=== PATIENT | female | born 1935 | race Caucasian/White ===

== ENCOUNTER → 2016-06-21 | Outpatient (CLI) | payer MEDICARE, BC ==
[~2016-06-21] MED LIST: BACTRIM DS 8001 TAB PO; BYSTOLIC10 MG PO; CALCIUM500 MG PO; CYMBALTA 30MG30 MG PO; EXCELON PATCH; EXELON9.5 MG/24 TD; FLEXERIL5 MG PO; FLOVENT DI50 MCG/Act IH; HYDROCHLOROTHIA PO; INDERAL 20MG20 MG PO; LIDODERM PATCH TP; LORTAB 5/500 501 TAB PO; NATURAL MAGNES200 MG PO; NORCO 325 MG-51 TAB PO; NORCO 325 MG-7.1 TAB PO; OMEGA 31000 MG PO; OSCAL 500 TAB500 MG PO; OXYCODONE HCL5 MG PO; PRILOSEC 20MG20 MG PO; ROXICODONE 55 MG/TAB PO; SYNTHROID0.05 MG/TA PO; ULTRAM 50MG TAB50 MG PO; VITAMIN C500 MG PO; VITAMIN D 400400 IU PO; ZANTAC 150MG T150 MG PO; ZOCOR 20MG20 MG PO
== END ==
LOC: MC.RAD 10:20
DX: Z12.31 Encounter for screening mammogram for malignant neoplasm of breast (principal); D24.2 Benign neoplasm of left breast; D24.1 Benign neoplasm of right breast

== ENCOUNTER → 2017-06-24 | Outpatient (CLI) | payer MEDICARE, BC | LOC: MC.RAD 10:00 | DX: Z12.31 Encounter for screening mammogram for malignant neoplasm of breast (principal) ==

== ENCOUNTER → 2018-07-09 | Outpatient (CLI) | payer MEDICARE, BC | LOC: MC.RAD 09:58 | DX: Z12.31 Encounter for screening mammogram for malignant neoplasm of breast (principal) ==

== ENCOUNTER 2019-03-16 09:52 | Emergency (ER) | payer MEDICARE, BC ==
[2007-09-27 15:07] VITALS: BP 130/70
[~2019-03-16] VITALS: Ht 152.4 cm; Wt 55.5 kg
[2019-03-16 10:28] VITALS: BP 129/65; TEMP 98.3
[2019-03-16 14:25] VITALS: PULSE 84
== END 2019-03-16 14:25 | disposition home or self-care (01) ==
LOC: COL.ER 09:52
DX: M41.56 Other secondary scoliosis, lumbar region (principal); Z90.710 Acquired absence of both cervix and uterus; Z90.89 Acquired absence of other organs; Z90.49 Acquired absence of other specified parts of digestive tract
CPT/HCPCS: J3010

== ENCOUNTER 2019-04-30 13:57 | Outpatient (CLI) | payer MEDICARE, BC ==
[2007-09-27 15:07] VITALS: BP 130/70
[~2019-04-30] VITALS: Ht 152.4 cm; Wt 57.4 kg
[~2019-04-30 13:57] MED LIST changes: +MASON NATURAL1200 MG PO; -OMEGA 31000 MG PO; -VITAMIN D 400400 IU PO; +VITAMIND3 5000 PO
[2019-04-30] MEDS ORDERED: TOPROL XL 25MG25 MG PO (14:36)
[2019-04-30 15:57] VITALS: BP 133/77; PULSE 80; TEMP 97.3
== END 2019-04-30 16:10 | disposition home or self-care (01) ==
LOC: EUO 13:57
DX: M85.80 Other specified disorders of bone density and structure, unspecified site (principal)
CPT/HCPCS: J3489

== ENCOUNTER 2019-05-14 09:51 | Emergency (ER) | payer MEDICARE, BC ==
[2007-09-27 15:07] VITALS: BP 130/70
[~2019-05-14] VITALS: Ht 147.3 cm; Wt 56.4 kg
[~2019-05-14 09:51] MED LIST changes: +TOPROL XL 25MG25 MG PO
[2019-05-14 10:03] VITALS: PULSE 97; TEMP 98.3
[2019-05-14] MEDS ORDERED: FLEXERIL 1010 MG/TAB PO (12:08)
[2019-05-14 12:15] VITALS: BP 146/90
== END 2019-05-14 12:15 | disposition home or self-care (01) ==
LOC: COL.ER 09:51
DX: S62.602A Fracture of unspecified phalanx of right middle finger, initial encounter for closed fracture (principal); S16.1XXA Strain of muscle, fascia and tendon at neck level, initial encounter; S00.93XA Contusion of unspecified part of head, initial encounter; E03.9 Hypothyroidism, unspecified; W01.0XXA Fall on same level from slipping, tripping and stumbling without subsequent striking against object, initial encounter; Y92.009 Unspecified place in unspecified non-institutional (private) residence as the place of occurrence of the external cause

== ENCOUNTER → 2019-08-12 | Outpatient (CLI) | payer MEDICARE, BC ==
[~2019-08-12] MED LIST changes: +FLEXERIL 1010 MG/TAB PO
== END ==
LOC: MC.RAD 15:29
DX: Z12.31 Encounter for screening mammogram for malignant neoplasm of breast (principal)

== ENCOUNTER 2020-04-15 14:45 | Outpatient (CLI) | payer MEDICARE, BC ==
[2007-09-27 15:07] VITALS: BP 130/70
[~2020-04-15] VITALS: Ht 147.3 cm; Wt 56.6 kg
[2020-04-15 16:22] VITALS: BP 134/69; PULSE 74; TEMP 98.4
== END 2020-04-15 17:00 | disposition home or self-care (01) ==
LOC: EUO 14:45
DX: M81.0 Age-related osteoporosis without current pathological fracture (principal)
CPT/HCPCS: J3489

== ENCOUNTER → 2020-05-03 | Outpatient (CLI) | payer MEDICARE, BC | LOC: COL.RAD 14:45 | DX: N30.21 Other chronic cystitis with hematuria (principal); N32.89 Other specified disorders of bladder ==

== ENCOUNTER → 2020-08-12 | Outpatient (CLI) | payer MEDICARE, BC | LOC: MC.RAD 10:21 | DX: Z12.31 Encounter for screening mammogram for malignant neoplasm of breast (principal) ==

== ENCOUNTER 2021-05-09 12:58 | Outpatient (CLI) | payer MEDICARE, BC ==
[2007-09-27 15:07] VITALS: BP 130/70
[~2021-05-09] VITALS: Ht 147.3 cm; Wt 54.7 kg
[2021-05-09 13:30] VITALS: BP 127/84; BP 128/77; PULSE 67; PULSE 83; TEMP 98; TEMP 98.1
[2021-05-09] MEDS ORDERED: ALDACTONE 25MG25 M1 PO (17:07)
[2021-05-09] MEDS ORDERED: B-121000 MCG PO (17:09)
== END 2021-05-09 17:13 | disposition home or self-care (01) ==
LOC: EUO 12:58
DX: M81.0 Age-related osteoporosis without current pathological fracture (principal)
CPT/HCPCS: J3489

== ENCOUNTER → 2021-08-24 | Outpatient (CLI) | payer MEDICARE, BC ==
[~2021-08-24] MED LIST changes: +ALDACTONE 25MG25 M1 PO; +B-121000 MCG PO
== END ==
LOC: MC.RAD 13:28
DX: Z12.31 Encounter for screening mammogram for malignant neoplasm of breast (principal)

== ENCOUNTER 2022-05-07 17:10 | Emergency (ER) | payer MEDICARE, BC ==
[~2022-05-07] VITALS: Ht 149.9 cm; Wt 50.0 kg
[2022-05-07 17:20] VITALS: TEMP 97.8
[2022-05-07] MEDS ORDERED: NORCO 325 MG-51 TAB PO (18:40)
[2022-05-07 19:14] VITALS: BP 141/96; PULSE 88
== END 2022-05-07 19:15 | disposition home or self-care (01) ==
LOC: COL.ER 17:10
DX: M25.511 Pain in right shoulder (principal); Z87.81 Personal history of (healed) traumatic fracture
CPT/HCPCS: J1885

== ENCOUNTER → 2022-08-07 | Outpatient (CLI) | payer MEDICARE, BC | LOC: MC.RAD 13:39 | DX: Z12.31 Encounter for screening mammogram for malignant neoplasm of breast (principal) ==